=== PATIENT | female | born 2000 | race Caucasian/White ===

== ENCOUNTER 2023-05-07 21:00 | Emergency (ER) | payer OTHER ==
[~2023-05-07] VITALS: Ht 175.3 cm; Wt 75.0 kg
[2023-05-07 22:53] VITALS: BP 134/76; PULSE 102; RESP 16; TEMP 98.1
== END 2023-05-07 23:08 | disposition home or self-care (01) ==
LOC: EMS 21:03 → EDBD 21:03 → EMS 23:08
DX: F41.9 Anxiety disorder, unspecified (principal)
CPT/HCPCS: 99281; Z7502